=== PATIENT | male | born 1965 | race American Indian/Alaskan Native ===

== ENCOUNTER 2019-04-17 13:16 | Emergency (ER) | payer SELFPAY ==
[2019-04-17 14:06] VITALS: BP 152/79
--- NOTE | 2019-04-17 14:08 | Emergency Department Report ---
{null, Blank Doc - Documentation Documentation: 54-year-old male that presents with dizziness and generalized weakness. This initial assessment/diagnostic orders/clinical plan/treatment(s) is/are subject to change based on patient's health status, clinical progression and re- assessment by fellow clinical providers in the ED. Further treatment and workup at subsequent clinical providers discretion. Patient/guardians urged not to elope from the ED as their condition may be serious if not clinically assessed and managed. Initial orders include: 1- Patient sent to [facility] for further evaluation and treatment 2- labs 3- UA }
[2019-04-17 15:14] LABS: Basophils % (Auto) 0.2 % (0.0-1.8); Eosinophils % (Auto) 0.1 % (0.0-4.3); Hematocrit 46.8 % (35.5-45.6); Hemoglobin 15.5 gm/dl (11.8-15.2); Lymphocytes # (Auto) 0.9 K/mm3 (1.2-5.4); Mean Corpuscular HGB Conc 33 % (32-34); Mean Corpuscular Volume 82 fl (84-94); Monocytes # (Auto) 0.8 K/mm3 (0.0-0.8); Monocytes % (Auto) 6.1 % (0.0-7.3); Platelet Count 255 K/mm3 (140-440); Red Cell Distribution Width 13.5 % (13.2-15.2)
[2019-04-17 15:26] LABS: Alanine Aminotransferase 56 units/L (7-56); Albumin 4.4 g/dL (3.9-5); BUN/Creatinine Ratio 11; Blood Urea Nitrogen 11 mg/dL (9-20); Calcium 9.7 mg/dL (8.4-10.2); Hemolysis Index 16
[2019-04-17 20:10] LABS: Bacteria,Urine 1+ /HPF (Negative); Bilirubin,Urine NEG (Negative); Blood,Urine NEG (Negative); Color,Urine Yellow (Yellow); Mucus,Urine FEW /HPF; Protein,Urine <15 mg/dL mg/dL (Negative); Urobilinogen,Urine < 2.0 mg/dL (<2.0)
--- NOTE | 2019-04-17 20:50 | Emergency Department Report ---
{null, Chief Complaint: Weakness Stated Complaint: DIZZINESS Time Seen by Provider: 04/17/19 14:07 - HPI History of Present Illness: 54-year-old -[place] male presents to the emergency room complaining of dizziness, nausea vomiting and body aches. Patient has a history of diabetes. Patient states he vomited twice today. But he is able to drink. Patient states he feels like his blood sugar drops. I asked him what is he usually do when his blood sugar drops he says he drinks orange juice. Patient has orange juice at the bedside he reports that he is drinking it. Patient is taken nothing for his body aches. Patient does have a primary care provider at [facility]. - Exam Vital Signs: Vital Signs 04/17/19 14:03 Temperature 97.9 F Pulse Rate 68 Respiratory 18 Rate Blood Pressure 152/79 O2 Sat by Pulse 99 Oximetry Physical Exam: Patient refused to have me examine him MSE screening note: Focused history and physical exam performed. Due to findings the following was ordered: 54-year-old -[place] male presents to the emergency room complaining of dizziness, nausea vomiting and body aches. Patient has a history of diabetes. Patient states he vomited twice today. But he is able to drink. Patient states he feels like his blood sugar drops. I asked him what is he usually do when his blood sugar drops he says he drinks orange juice. Patient has orange juice at the bedside he reports that he is drinking it. Patient is taken nothing for his body aches. Patient does have a primary care provider at [facility]. Patient refused to have me examine him. I discussed the patient we would not be giving him any medication as his vital signs are stable his labs are stable discussed the patient needs to follow-up with his primary care provider which is [facility]. I gave patient a handout to [facility] as well as to Dr. Escobar. ED Medical Decision Making - Lab Data Result diagrams: 04/17/19 14:44 04/17/19 14:44 ED Disposition for MSE Clinical Impression: Dizziness of unknown etiology, Generalized body aches Nausea & vomiting Qualifiers: Vomiting type: unspecified Vomiting Intractability: intractable Qualified Code(s): R11.2 - Nausea with vomiting, unspecified Disposition: MED SCREENING EXAM-LEFT Is pt being admited?: No Does the pt Need Aspirin: No Condition: Stable Additional Instructions: Labs were stable blood sugar is 116. Follow-up with your primary care provider at [facility] Referrals: PRIMARY CARE, [Primary Care Provider] - 3-5 Days [facility] [Provider Group] - 3-5 Days Forms: Work/School Release Form(ED) }
== END 2019-04-17 20:57 | disposition left against medical advice (07) ==
LOC: ED 13:16
DX: R42 Dizziness and giddiness (principal); R11.2 Nausea with vomiting, unspecified; M79.10 Myalgia, unspecified site
CPT/HCPCS: 36415; 80053; 81001; 85025; 87086